=== PATIENT | male | born 1975 | race Caucasian/White ===

== ENCOUNTER 2022-01-20 12:02 | Emergency (ER) | payer MEDICAID, SELFPAY ==
--- NOTE | ~2022-01-20 | CT_ITS ---
EXAMINATION: CT ABDOMEN AND PELVIS WITH CONTRAST CLINICAL INFORMATION: Left lower quadrant pain. History of IV drug abuse COMPARISON: None TECHNIQUE: Multidetector volumetric images were obtained from the superior aspect of the liver through the pubic symphysis following administration 85 mL of Omnipaque 350 intravenous contrast. Sagittal and coronal reformatted images were obtained on the technologist's workstation. Oral contrast: No This CT examination was performed using dose optimization techniques as appropriate, variously including the following: *Automated exposure control *Adjustment of mA and/or kV according to patient size (this includes techniques or standardized protocols for targeted exams where dose is matched to indication/reason for exam; i.e. extremities or head) *Use of iterative reconstruction technique DLP: 391 mGy-cm FINDINGS: LUNG BASES: The heart is enlarged. Bibasilar atelectasis is present. Pacemaker leads are present. LIVER, GALLBLADDER, AND BILIARY TREE: The liver is enlarged measuring at least 20 cm in greatest length. I suspect that there is some hepatic steatosis as there appears to be some focal fatty sparing adjacent to the gallbladder (13:42). No focal hepatic mass is seen. The gallbladder is unremarkable with no evidence of radiopaque gallstones, gallbladder wall thickening, or obvious pericholecystic inflammatory changes. PANCREAS: Unremarkable. SPLEEN: Spleen is markedly enlarged measuring 18 cm in greatest length and there is a 9.6 x 5.6 x 8.1 cm hypoattenuating mass in the inferior spleen. Given the history of IV drug abuse, abscess is certainly a possibility. ADRENAL GLANDS: Unremarkable. KIDNEYS AND URETERS: There is a focal cortical scar present at the upper pole of the right kidney laterally with some associated calcification. A 2 mm punctate nonobstructing calculus is present in the left lower pole. No suspicious renal masses or hydroureter is present. BLADDER: Unremarkable. GASTROINTESTINAL TRACT: The small and large bowel are unremarkable aside from a few scattered colonic diverticula without diverticulitis.. The appendix is unremarkable. ABDOMINAL WALL: No significant hernia is appreciated. LYMPH NODES: No retroperitoneal lymphadenopathy. VASCULAR: Unremarkable. PELVIC VISCERA: A small to moderate amount of ascites is present. Prostate and seminal vesicles appear normal. OSSEOUS STRUCTURES: Marked disc space narrowing noted at the L4-L5 and L5-S1 disc spaces with some cortical destructive changes. Given the history of IV drug abuse, discitis would certainly be a possibility. Unfortunately, no prior studies are available for comparison. The remainder of the visualized lumbar spine is unremarkable remaining. CT/CT abdomen pelvis w IV con IMPRESSION: 1. Marked splenomegaly with a large hypoattenuating mass in the spleen. Differential diagnosis would include an abscess in an IV drug abuser. Other causes such as hemangioma or chronic hematoma along with lymphoma, leukemia, metastatic disease, lymphoma, are probably less likely in this scenario 2. Hepatomegaly with probable steatosis and a small to moderate amount of ascites. 3. Findings at L4-L5 and L5-S1 which could represent discitis in the setting of IV drug abuse. 4. Other incidental findings as described above including right upper pole renal scar and nonobstructing left renal calculus. Fleischner guidelines were followed. This critical result was discussed with Dr. Susan Kelly at 8:20 PM on the evening of the exam and it was ascertained that the content and urgency of the report was understood at the time of direct communication.
--- NOTE | ~2022-01-20 | CT_ITS ---
EXAMINATION: CT THORACIC SPINE WITH CONTRAST CT LUMBAR SPINE WITHOUT CONTRAST CLINICAL INFORMATION: Spinal pain. Intravenous drug abuse. COMPARISON: CT abdomen and pelvis 01/20/2022. TECHNIQUE: Janitor Custodian images were obtained. CT imaging of the thoracic and lumbar spine was performed after the intravenous administration of 85 mL Omnipaque 350. This CT examination was performed using dose optimization techniques as appropriate, including one or more of the following: Automated exposure control, iterative reconstruction, and adjustment of technique factors (mA and/or kVp) according to patient size (this includes techniques or standardized protocols for targeted exams where dose is matched to indication/reason for exam). Fleischner Society criteria for the followup of incidental pulmonary nodules was implemented if appropriate. DLP: 751 mGy-cm. FINDINGS: Thoracic spine: Alignment is normal. Vertebral body heights are preserved. No acute fracture. Intervertebral disc height is maintained at all levels. Canal patency is not well assessed on this examination due to inherent limitations of CT without intrathecal contrast. Grossly no evidence of canal compromise. Limited visualization of the intrathoracic anatomy reveals bibasilar subsegmental atelectasis. Lumbar spine: Alignment is normal. Vertebral heights are preserved. There is loss of intervertebral disc height with mixed lytic and sclerotic changes involving the adjoining endplates at L4-L5 and L5-S1. Subtle loss of intervertebral disc height at L3-L4. Patency is not well assessed on this examination due to inherent limitations of CT without intrathecal contrast. No substantial neuroforaminal encroachment. Limited visualization of the retroperitoneal anatomy reveals intraperitoneal fluid layering within the pelvis. Psoas and paraspinal muscle groups are symmetric. CT/CT lumbar spine w IV con IMPRESSION: There are mixed lytic and sclerotic changes involving the adjoining endplates at L4-L5 and L5-S1 that may represent a manifestation of discitis osteomyelitis. Mild disc degeneration at L3-L4. Canal patency is not well assessed on this examination due to inherent limitations of CT without intrathecal contrast. Grossly no evidence of canal compromise. Limited visualization of the retroperitoneal anatomy reveals intraperitoneal fluid layering within the pelvis.
--- NOTE | ~2022-01-20 | CT_ITS ---
EXAMINATION: CT THORACIC SPINE WITH CONTRAST CT LUMBAR SPINE WITHOUT CONTRAST CLINICAL INFORMATION: Spinal pain. Intravenous drug abuse. COMPARISON: CT abdomen and pelvis 01/20/2022. TECHNIQUE: Psychology Department Chair images were obtained. CT imaging of the thoracic and lumbar spine was performed after the intravenous administration of 85 mL Omnipaque 350. This CT examination was performed using dose optimization techniques as appropriate, including one or more of the following: Automated exposure control, iterative reconstruction, and adjustment of technique factors (mA and/or kVp) according to patient size (this includes techniques or standardized protocols for targeted exams where dose is matched to indication/reason for exam). Fleischner Society criteria for the followup of incidental pulmonary nodules was implemented if appropriate. DLP: 751 mGy-cm. FINDINGS: Thoracic spine: Alignment is normal. Vertebral body heights are preserved. No acute fracture. Intervertebral disc height is maintained at all levels. Canal patency is not well assessed on this examination due to inherent limitations of CT without intrathecal contrast. Grossly no evidence of canal compromise. Limited visualization of the intrathoracic anatomy reveals bibasilar subsegmental atelectasis. Lumbar spine: Alignment is normal. Vertebral heights are preserved. There is loss of intervertebral disc height with mixed lytic and sclerotic changes involving the adjoining endplates at L4-L5 and L5-S1. Subtle loss of intervertebral disc height at L3-L4. Patency is not well assessed on this examination due to inherent limitations of CT without intrathecal contrast. No substantial neuroforaminal encroachment. Limited visualization of the retroperitoneal anatomy reveals intraperitoneal fluid layering within the pelvis. Psoas and paraspinal muscle groups are symmetric. CT/CT thoracic spine w IV con IMPRESSION: There are mixed lytic and sclerotic changes involving the adjoining endplates at L4-L5 and L5-S1 that may represent a manifestation of discitis osteomyelitis. Mild disc degeneration at L3-L4. Canal patency is not well assessed on this examination due to inherent limitations of CT without intrathecal contrast. Grossly no evidence of canal compromise. Limited visualization of the retroperitoneal anatomy reveals intraperitoneal fluid layering within the pelvis.
[2022-01-20 12:19] VITALS: BP 100/64; PULSE 74; RESP 18; TEMP 36.6; O2SAT 96; BMI 17.6
--- NOTE | 2022-01-20 12:19 | ED.ABDPAIN ---
HPI - Abdominal Pain General Chief Complaint: Abdominal Pain <Oli Haile MD - Last Filed: 01/20/22 12:22> Stated Complaint: chest and abd pain <Oli Haile MD - Last Filed: 01/20/22 12:22> Time Seen by Provider: 01/20/22 17:04 <Oli Haile MD - Last Filed: 01/20/22 12:22> Related Data Allergies/Adverse Reactions: Allergies Allergy/AdvReac Type Severity Reaction Status Date / Time clindamycin Allergy Hives Verified 01/20/22 12:21 <Oli Haile MD - Last Filed: 01/20/22 12:22> [facility] Social History Social History: Social History Smoked in Last 30 Days: Yes Use of substances other than those prescribed or required for medical reasons: Yes Advance Directives: No Advance Directives Information Provided: No <Oli Haile MD - Last Filed: 01/20/22 12:22> Physical Exam ED Vital Signs: Vital Signs - 24 hr 01/20/22 12:19 01/20/22 17:20 01/20/22 21:35 Temperature 97.8 F 98.1 F Pulse Rate 74 75 77 Respiratory Rate 18 18 Blood Pressure 100/64 105/62 118/73 Pulse Oximetry 96 99 100 Oxygen Delivery Method Room Air Room Air Room Air 01/20/22 22:25 01/20/22 23:51 01/21/22 01:46 Temperature 99.1 F 99.8 F 99.8 F Pulse Rate 85 89 85 Respiratory Rate 18 15 18 Blood Pressure 127/81 118/68 99/53 L Pulse Oximetry 97 95 93 Oxygen Delivery Method Room Air Room Air Room Air 01/21/22 03:42 Temperature 99.5 F Pulse Rate 75 Respiratory Rate 15 Blood Pressure 102/58 L Pulse Oximetry 99 Oxygen Delivery Method Room Air BMI result Body Mass Index 17.6 <Oli Haile MD - Last Filed: 01/20/22 12:22> Vital Signs - 24 hr 01/20/22 12:19 01/20/22 17:20 01/20/22 21:35 Temperature 97.8 F 98.1 F Pulse Rate 74 75 77 Respiratory Rate 18 18 Blood Pressure 100/64 105/62 118/73 Pulse Oximetry 96 99 100 Oxygen Delivery Method Room Air Room Air Room Air 01/20/22 22:25 01/20/22 23:51 01/21/22 01:46 Temperature 99.1 F 99.8 F 99.8 F Pulse Rate 85 89 85 Respiratory Rate 18 15 18 Blood Pressure 127/81 118/68 99/53 L Pulse Oximetry 97 95 93 Oxygen Delivery Method Room Air Room Air Room Air 01/21/22 03:42 Temperature 99.5 F Pulse Rate 75 Respiratory Rate 15 Blood Pressure 102/58 L Pulse Oximetry 99 Oxygen Delivery Method Room Air BMI result Body Mass Index 17.6 <Jimmy Saavedra MD - Last Filed: 01/21/22 05:27> Course Reevaluation(s) Reevaluation #1: left lower abdominal pain with palpitations. Abdominal pain started first followed by palpitations. 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 No active shooting. PE, thin cachectic male RRR, 3/6 SHAUN tender abdomen <Oli Haile MD - Last Filed: 01/20/22 12:22> Time: 05:26 <Jimmy Saavedra MD - Last Filed: 01/21/22 05:27> Reevaluation #2: Lab called blood culture 04/17 showing Gram-positive cocci in chain final report pending <Jimmy Saavedra MD - Last Filed: 01/21/22 05:27> Medications Administered Discontinued Medications Generic Name Dose Route Start Last Admin Trade Name Parminder PRN Reason Stop Dose Admin Hydromorphone HCl 0.5 mg 01/20/22 20:25 01/20/22 21:05 Hydromorphone Hcl 0.5 Mg/0.5 Ml Syringe IVPUSH 01/20/22 20:26 0.5 mg ONCE ONE Administration Protocol Hydromorphone HCl 0.5 mg 01/20/22 23:59 01/21/22 00:11 Hydromorphone Hcl 0.5 Mg/0.5 Ml Syringe IVPUSH 01/21/22 00:00 0.5 mg ONCE ONE Administration Protocol Sodium Chloride 1,000 mls @ 999 mls/hr 01/20/22 17:15 01/20/22 21:06 Ns IV 01/20/22 18:15 Infused .Q1H1M JOSSELINE Infusion Ceftriaxone Sodium 2 gm/ 50 mls @ 100 mls/hr 01/20/22 17:27 01/20/22 21:07 Sodium Chloride IV 01/20/22 17:56 Infused ONCE ONE Infusion Vancomycin HCl 1,000 mg/ 270 mls @ 270 mls/hr 01/20/22 23:11 01/21/22 01:14 Sodium Chloride IV 01/21/22 00:10 Infused ONCE ONE Infusion Iohexol 100 ml 01/20/22 18:24 01/20/22 18:24 Iohexol 350 Mg/Ml 100 Ml Infus..Btl IV 01/20/22 18:25 85 ml ONCE ONE Administration <Oli Haile MD - Last Filed: 01/20/22 12:22> Medications Administered Discontinued Medications Generic Name Dose Route Start Last Admin Trade Name Freq PRN Reason Stop Dose Admin Hydromorphone HCl 0.5 mg 01/20/22 20:25 01/20/22 21:05 Hydromorphone Hcl 0.5 Mg/0.5 Ml Syringe IVPUSH 01/20/22 20:26 0.5 mg ONCE ONE Administration Protocol Hydromorphone HCl 0.5 mg 01/20/22 23:59 01/21/22 00:11 Hydromorphone Hcl 0.5 Mg/0.5 Ml Syringe IVPUSH 01/21/22 00:00 0.5 mg ONCE ONE Administration Protocol Sodium Chloride 1,000 mls @ 999 mls/hr 01/20/22 17:15 01/20/22 21:06 Ns IV 01/20/22 18:15 Infused .Q1H1M JOSSELINE Infusion Ceftriaxone Sodium 2 gm/ 50 mls @ 100 mls/hr 01/20/22 17:27 01/20/22 21:07 Sodium Chloride IV 01/20/22 17:56 Infused ONCE ONE Infusion Vancomycin HCl 1,000 mg/ 270 mls @ 270 mls/hr 01/20/22 23:11 01/21/22 01:14 Sodium Chloride IV 01/21/22 00:10 Infused ONCE ONE Infusion Iohexol 100 ml 01/20/22 18:24 01/20/22 18:24 Iohexol 350 Mg/Ml 100 Ml Infus..Btl IV 01/20/22 18:25 85 ml ONCE ONE Administration <Jimmy Saavedra MD - Last Filed: 01/21/22 05:27> MDM - Abdominal Pain Lab Data Result diagrams: : 01/20/22 12:38 01/20/22 12:38 <Oli Haile MD - Last Filed: 01/20/22 12:22> Labs: Lab Results 01/20/22 01/20/22 01/20/22 Range/Units 12:38 12:38 17:28 WBC 16.1 H (4.8-10.8) X10*3/uL RBC 3.42 L (4.60-5.80) X10*6/uL Hgb 9.0 L (14.0-18.0) g/dl Hct 28.3 L (42.0-52.0) % MCV 82.7 (80.0-98.0) fL MCH 26.3 L (27.0-33.0) pg MCHC 31.8 (31.0-36.0) g/dl RDW 16.0 (11.0-16.0) % Plt Count 150 L (160-400) X10*3/uL MPV 12.2 (9.4-12.4) fL Immature Gran % (Auto) 1.9 H (0.0-0.4) % Neut % (Auto) 87.6 H (45-73) % Lymph % (Auto) 7.2 L (20-40) % [place] % (Auto) 3.0 (2-11) % Eos % (Auto) 0.1 (0-4) % Baso % (Auto) 0.2 (0-2) % Lymph # (Auto) 1.2 (1.2-4.9) X10*3/uL [place] # (Auto) 0.5 (0.1-1.2) X10*3/uL Eos # (Auto) 0.0 (0.0-0.4) X10*3/uL Baso # (Auto) 0.0 (0.0-0.2) X10*3/uL Abs Immat Gran (auto) 0.31 H (0.00-0.03) X10*3/uL Absolute Neuts (auto) 14.1 H (2.0-8.3) x10*3/uL Absolute Nucleated RBC 0.020 H (0.0-0.012) X10*3/uL Nucleated RBC % (auto) 0.1 (0.0-0.2) /100WBC Sodium 135 (135-145) mmol/L Potassium 3.9 (3.3-5.1) mmol/L Chloride 101 (96-108) mmol/L Carbon Dioxide 24 (22-29) mmol/L Anion Gap 14 (12-20) BUN 19 H (9-16) mg/dL Creatinine 0.91 (0.5-1.4) mg/dL Estim Creat Clear Calc 85.4 Estimated GFR > 60 Random Glucose 105 (60-115) mg/dL Lactic Acid 1.1 (0.5-2.0) mmol/L Calcium 7.7 L (8.4-10.2) mg/dL Total Bilirubin 1.1 H (0.0-1.0) mg/dL AST 63 H (5-37) U/L ALT 37 (0-40) U/L Alkaline Phosphatase 141 H (39-117) U/L Total Protein 6.0 L (6.5-8.0) g/dL Albumin 2.6 L (3.5-5.0) g/dL Lipase 28 (8-78) U/L Ethyl Alcohol < 10 mg/dL Influenza Type A (PCR) (Negative) Influenza Type B (PCR) (Negative) RSV RNA Qual (PCR) (Negative) SARS-CoV-2 RNA (RT-PCR) (Negative) 01/20/22 Range/Units 17:38 WBC (4.8-10.8) X10*3/uL RBC (4.60-5.80) X10*6/uL Hgb (14.0-18.0) g/dl Hct (42.0-52.0) % MCV (80.0-98.0) fL MCH (27.0-33.0) pg MCHC (31.0-36.0) g/dl RDW (11.0-16.0) % Plt Count (160-400) X10*3/uL MPV (9.4-12.4) fL Immature Gran % (Auto) (0.0-0.4) % Neut % (Auto) (45-73) % Lymph % (Auto) (20-40) % [place] % (Auto) (2-11) % Eos % (Auto) (0-4) % Baso % (Auto) (0-2) % Lymph # (Auto) (1.2-4.9) X10*3/uL [place] # (Auto) (0.1-1.2) X10*3/uL Eos # (Auto) (0.0-0.4) X10*3/uL Baso # (Auto) (0.0-0.2) X10*3/uL Abs Immat Gran (auto) (0.00-0.03) X10*3/uL Absolute Neuts (auto) (2.0-8.3) x10*3/uL Absolute Nucleated RBC (0.0-0.012) X10*3/uL Nucleated RBC % (auto) (0.0-0.2) /100WBC Sodium (135-145) mmol/L Potassium (3.3-5.1) mmol/L Chloride (96-108) mmol/L Carbon Dioxide (22-29) mmol/L Anion Gap (12-20) BUN (9-16) mg/dL Creatinine (0.5-1.4) mg/dL Estim Creat Clear Calc Estimated GFR Random Glucose (60-115) mg/dL Lactic Acid (0.5-2.0) mmol/L Calcium (8.4-10.2) mg/dL Total Bilirubin (0.0-1.0) mg/dL AST (5-37) U/L ALT (0-40) U/L Alkaline Phosphatase (39-117) U/L Total Protein (6.5-8.0) g/dL Albumin (3.5-5.0) g/dL Lipase (8-78) U/L Ethyl Alcohol mg/dL Influenza Type A (PCR) NEGATIVE (Negative) Influenza Type B (PCR) NEGATIVE (Negative) RSV RNA Qual (PCR) NEGATIVE (Negative) SARS-CoV-2 RNA (RT-PCR) NEGATIVE (Negative) <Oli Haile MD - Last Filed: 01/20/22 12:22> Lab Results 01/20/22 01/20/22 01/20/22 Range/Units 12:38 12:38 17:28 WBC 16.1 H (4.8-10.8) X10*3/uL RBC 3.42 L (4.60-5.80) X10*6/uL Hgb 9.0 L (14.0-18.0) g/dl Hct 28.3 L (42.0-52.0) % MCV 82.7 (80.0-98.0) fL MCH 26.3 L (27.0-33.0) pg MCHC 31.8 (31.0-36.0) g/dl RDW 16.0 (11.0-16.0) % Plt Count 150 L (160-400) X10*3/uL MPV 12.2 (9.4-12.4) fL Immature Gran % (Auto) 1.9 H (0.0-0.4) % Neut % (Auto) 87.6 H (45-73) % Lymph % (Auto) 7.2 L (20-40) % [place] % (Auto) 3.0 (2-11) % Eos % (Auto) 0.1 (0-4) % Baso % (Auto) 0.2 (0-2) % Lymph # (Auto) 1.2 (1.2-4.9) X10*3/uL [place] # (Auto) 0.5 (0.1-1.2) X10*3/uL Eos # (Auto) 0.0 (0.0-0.4) X10*3/uL Baso # (Auto) 0.0 (0.0-0.2) X10*3/uL Abs Immat Gran (auto) 0.31 H (0.00-0.03) X10*3/uL Absolute Neuts (auto) 14.1 H (2.0-8.3) x10*3/uL Absolute Nucleated RBC 0.020 H (0.0-0.012) X10*3/uL Nucleated RBC % (auto) 0.1 (0.0-0.2) /100WBC Sodium 135 (135-145) mmol/L Potassium 3.9 (3.3-5.1) mmol/L Chloride 101 (96-108) mmol/L Carbon Dioxide 24 (22-29) mmol/L Anion Gap 14 (12-20) BUN 19 H (9-16) mg/dL Creatinine 0.91 (0.5-1.4) mg/dL Estim Creat Clear Calc 85.4 Estimated GFR > 60 Random Glucose 105 (60-115) mg/dL Lactic Acid 1.1 (0.5-2.0) mmol/L Calcium 7.7 L (8.4-10.2) mg/dL Total Bilirubin 1.1 H (0.0-1.0) mg/dL AST 63 H (5-37) U/L ALT 37 (0-40) U/L Alkaline Phosphatase 141 H (39-117) U/L Total Protein 6.0 L (6.5-8.0) g/dL Albumin 2.6 L (3.5-5.0) g/dL Lipase 28 (8-78) U/L Ethyl Alcohol < 10 mg/dL Influenza Type A (PCR) (Negative) Influenza Type B (PCR) (Negative) RSV RNA Qual (PCR) (Negative) SARS-CoV-2 RNA (RT-PCR) (Negative) 01/20/22 Range/Units 17:38 WBC (4.8-10.8) X10*3/uL RBC (4.60-5.80) X10*6/uL Hgb (14.0-18.0) g/dl Hct (42.0-52.0) % MCV (80.0-98.0) fL MCH (27.0-33.0) pg MCHC (31.0-36.0) g/dl RDW (11.0-16.0) % Plt Count (160-400) X10*3/uL MPV (9.4-12.4) fL Immature Gran % (Auto) (0.0-0.4) % Neut % (Auto) (45-73) % Lymph % (Auto) (20-40) % [place] % (Auto) (2-11) % Eos % (Auto) (0-4) % Baso % (Auto) (0-2) % Lymph # (Auto) (1.2-4.9) X10*3/uL [place] # (Auto) (0.1-1.2) X10*3/uL Eos # (Auto) (0.0-0.4) X10*3/uL Baso # (Auto) (0.0-0.2) X10*3/uL Abs Immat Gran (auto) (0.00-0.03) X10*3/uL Absolute Neuts (auto) (2.0-8.3) x10*3/uL Absolute Nucleated RBC (0.0-0.012) X10*3/uL Nucleated RBC % (auto) (0.0-0.2) /100WBC Sodium (135-145) mmol/L Potassium (3.3-5.1) mmol/L Chloride (96-108) mmol/L Carbon Dioxide (22-29) mmol/L Anion Gap (12-20) BUN (9-16) mg/dL Creatinine (0.5-1.4) mg/dL Estim Creat Clear Calc Estimated GFR Random Glucose (60-115) mg/dL Lactic Acid (0.5-2.0) mmol/L Calcium (8.4-10.2) mg/dL Total Bilirubin (0.0-1.0) mg/dL AST (5-37) U/L ALT (0-40) U/L Alkaline Phosphatase (39-117) U/L Total Protein (6.5-8.0) g/dL Albumin (3.5-5.0) g/dL Lipase (8-78) U/L Ethyl Alcohol mg/dL Influenza Type A (PCR) NEGATIVE (Negative) Influenza Type B (PCR) NEGATIVE (Negative) RSV RNA Qual (PCR) NEGATIVE (Negative) SARS-CoV-2 RNA (RT-PCR) NEGATIVE (Negative) <Jimmy Saavedra MD - Last Filed: 01/21/22 05:27> Discharge Plan Discharge Clinical Impression: Abscess, spleen, Active intravenous drug use, Discitis of lumbar region <Oli Haile MD - Last Filed: 01/20/22 12:22> Patient Disposition: [facility] <Oli Haile MD - Last Filed: 01/20/22 12:22> Transfer Details: Increased level of care, Neurosurgery needed <Oli Haile MD - Last Filed: 01/20/22 12:22> Increased level of care, Neurosurgery needed <Jimmy Saavedra MD - Last Filed: 01/21/22 05:27>
--- NOTE | 2022-01-20 12:22 | ECG_ITS ---
Test Reason : abd pain Blood Pressure : / mmHG Vent. Rate : 075 BPM Atrial Rate : 075 BPM P-R Int : 198 ms QRS Dur : 124 ms QT Int : 454 ms P-R-T Axes : -10 -43 -31 degrees QTc Int : 506 ms AV dual-paced rhythm Abnormal ECG No previous ECGs available Referred By: Oli Haile Electronically Signed By:SHAHNAZ HUDSON MD
[2022-01-20 12:44] LABS: MANUAL DIFF FLAG NO
[2022-01-20 12:45] LABS: Basophils Percent Auto 0.2 % (0-2); Eosinophils Percent Auto 0.1 % (0-4); Hematocrit 28.3 % (42.0-52.0); Imm Gran Abs Auto 0.31 X10*3/uL (0.00-0.03); Imm Gran Pct Auto 1.9 % (0.0-0.4); Lymphocytes Absolute Auto 1.2 X10*3/uL (1.2-4.9); Lymphocytes Percent Auto 7.2 % (20-40); Mean Corpuscular HGB Conc 31.8 g/dl (31.0-36.0); Mean Corpuscular Hemoglobin 26.3 pg (27.0-33.0); Mean Corpuscular Volume 82.7 fL (80.0-98.0); Mean Platelet Volume 12.2 fL (9.4-12.4); Monocytes Absolute Auto 0.5 X10*3/uL (0.1-1.2); NRBC Pct Auto 0.1 /100WBC (0.0-0.2); Neutrophils Absolute Auto 14.1 x10*3/uL (2.0-8.3); Neutrophils Percent Auto 87.6 % (45-73); Platelet Count 150 X10*3/uL (160-400); Red Blood Count 3.42 X10*6/uL (4.60-5.80); White Blood Count 16.1 X10*3/uL (4.8-10.8)
[2022-01-20 13:04] LABS: Alanine Aminotransferase 37 U/L (0-40); Albumin Level 2.6 g/dL (3.5-5.0); Alkaline Phosphatase 141 U/L (39-117); Anion Gap 14 (12-20); Aspartate Amino Transferase 63 U/L (5-37); Bilirubin Total 1.1 mg/dL (0.0-1.0); Blood Urea Nitrogen 19 mg/dL (9-16); Calcium 7.7 mg/dL (8.4-10.2); Carbon Dioxide 24 mmol/L (22-29); Chloride 101 mmol/L (96-108); Creatinine Clr Calc Pharmacy 85.4; Estimated Glomerular Filt Rate > 60; Glucose Random 105 mg/dL (60-115); Lipase 28 U/L (8-78); Potassium 3.9 mmol/L (3.3-5.1); Sodium 135 mmol/L (135-145)
--- NOTE | 2022-01-20 17:16 | ED.ABDPAIN ---
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 Patient states that 2 days ago he woke up with severe back pain that wrapped around to the left lower quadrant and reports palpitations. He states that he can barely walk because of the pain, has been having some nausea as well as chills and describes the pain as sharp in nature. Related Data Allergies Allergy/AdvReac Type Severity Reaction Status Date / Time clindamycin Allergy Hives Verified 01/20/22 12:21 Review of Systems Review of Systems Pertinent positives and negatives as stated in HPI 10 point review of systems is otherwise negative. PMFSH Past Medical History Source: nursing notes reviewed Social History Social History Advance Directives: No Advance Directives Information Provided: No Physical Exam ED Vital Signs: Vital Signs - 24 hr 01/20/22 12:19 01/20/22 17:20 01/20/22 21:35 Temperature 97.8 F 98.1 F Pulse Rate 74 75 77 Respiratory Rate 18 18 Blood Pressure 100/64 105/62 118/73 Pulse Oximetry 96 99 100 Oxygen Delivery Method Room Air Room Air Room Air 01/20/22 22:25 Temperature 99.1 F Pulse Rate 85 Respiratory Rate 18 Blood Pressure 127/81 Pulse Oximetry 97 Oxygen Delivery Method Room Air BMI result Body Mass Index 17.6 VITAL SIGNS: Reviewed. GENERAL: Chronically ill, cachectic, in no acute distress. HEAD: Normocephalic/atraumatic EYES: PERRLA, EOMI EARS: Ext canals without abnormality OROPHARYNX: no oral lesions noted, posterior pharynx clear, dry mucosa NECK: Supple, no adenopathy, no midline cervical spine tenderness LUNGS: Normal breath sounds. No adventitious sounds or accessory muscle use. SpO2<96> CARDIOVASCULAR: Paced rate and rhythm, + murmurs, no JVD or lower extremity edema. ABDOMEN: Soft, diffusely tender abdomen that is maximal in left lower quadrant without inguinal pain, non-distended with bowel sounds. BACK: No midline cervical spine tenderness from approximate T10 extending caudally into L4-L5 MUSCULOSKELETAL: No tenderness, deformities, or effusions noted on gross inspection, multiple injection sites along bilateral ankles. EXTREMITIES: No cyanosis, clubbing or edema. SKIN: Inspection of the skin reveals no rashes NEUROLOGIC: Alert and oriented x 4. Strength and sensation to light touch were grossly intact x 4. Course Course Course Narrative: 1725: I suspect an infection. High clinical suspicion for possible spinal abscess, lactic acid/blood cultures ordered, antibiotics will be ordered, IV fluids and attempting arrangements for MRI of the spine. Patient does not have his pacemaker information so will proceed with evaluation with CT scan and IV contrast. 07/2021 Note: I obtained records from [facility] from 08/01/2021 and patient is reported as having a longstanding, recurrent history with multiple surgeries and infections involving his heart. Bioprosthetic AVR in 2016 and redo aortic valve with root repair/mitral valve repair/tricuspid annuloplasty in 2020. During the last cardiac surgery patient went into cardiogenic shock requiring ECMO an by ventricular epicardial pacemaker placement. 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 Review of all investigations consistent with splenic abscess, hepatomegaly, diskitis with limited evaluation for possible osteomyelitis or evaluation of the spinal canal. Patient has been made NPO and given pain medication and will speak with [facility] for transfer as we do not have neurosurgical services and patient will likely need evaluation by Surgical Services. Reevaluation(s) Reevaluation #1: [facility] called to report splenic abscess, and states that neuro radiologist will be reading the spine portion of the study. Time: 20:17 Reevaluation #2: I discussed the case with Dr. Simental through [facility] and [place] who accepts the patient. Time: 23:13 Medications Administered Discontinued Medications Generic Name Dose Route Start Last Admin Trade Name Freq PRN Reason Stop Dose Admin Hydromorphone HCl 0.5 mg 01/20/22 20:25 01/20/22 21:05 Hydromorphone Hcl 0.5 Mg/0.5 Ml Syringe IVPUSH 01/20/22 20:26 0.5 mg ONCE ONE Administration Protocol Sodium Chloride 1,000 mls @ 999 mls/hr 01/20/22 17:15 01/20/22 21:06 Ns IV 01/20/22 18:15 Infused .Q1H1M JOSSELINE Infusion Ceftriaxone Sodium 2 gm/ 50 mls @ 100 mls/hr 01/20/22 17:27 01/20/22 21:07 Sodium Chloride IV 01/20/22 17:56 Infused ONCE ONE Infusion Iohexol 100 ml 01/20/22 18:24 01/20/22 18:24 Iohexol 350 Mg/Ml 100 Ml Infus..Btl IV 01/20/22 18:25 85 ml ONCE ONE Administration MDM - Abdominal Pain Lab Data Result diagrams: 01/20/22 12:38 01/20/22 12:38 Labs: Lab Results 01/20/22 01/20/22 01/20/22 Range/Units 12:38 12:38 17:28 WBC 16.1 H (4.8-10.8) X10*3/uL RBC 3.42 L (4.60-5.80) X10*6/uL Hgb 9.0 L (14.0-18.0) g/dl Hct 28.3 L (42.0-52.0) % MCV 82.7 (80.0-98.0) fL MCH 26.3 L (27.0-33.0) pg MCHC 31.8 (31.0-36.0) g/dl RDW 16.0 (11.0-16.0) % Plt Count 150 L (160-400) X10*3/uL MPV 12.2 (9.4-12.4) fL Immature Gran % (Auto) 1.9 H (0.0-0.4) % Neut % (Auto) 87.6 H (45-73) % Lymph % (Auto) 7.2 L (20-40) % Cooper % (Auto) 3.0 (2-11) % Eos % (Auto) 0.1 (0-4) % Baso % (Auto) 0.2 (0-2) % Lymph # (Auto) 1.2 (1.2-4.9) X10*3/uL Cooper # (Auto) 0.5 (0.1-1.2) X10*3/uL Eos # (Auto) 0.0 (0.0-0.4) X10*3/uL Baso # (Auto) 0.0 (0.0-0.2) X10*3/uL Abs Immat Gran (auto) 0.31 H (0.00-0.03) X10*3/uL Absolute Neuts (auto) 14.1 H (2.0-8.3) x10*3/uL Absolute Nucleated RBC 0.020 H (0.0-0.012) X10*3/uL Nucleated RBC % (auto) 0.1 (0.0-0.2) /100WBC Sodium 135 (135-145) mmol/L Potassium 3.9 (3.3-5.1) mmol/L Chloride 101 (96-108) mmol/L Carbon Dioxide 24 (22-29) mmol/L Anion Gap 14 (12-20) BUN 19 H (9-16) mg/dL Creatinine 0.91 (0.5-1.4) mg/dL Estim Creat Clear Calc 85.4 Estimated GFR > 60 Random Glucose 105 (60-115) mg/dL Lactic Acid 1.1 (0.5-2.0) mmol/L Calcium 7.7 L (8.4-10.2) mg/dL Total Bilirubin 1.1 H (0.0-1.0) mg/dL AST 63 H (5-37) U/L ALT 37 (0-40) U/L Alkaline Phosphatase 141 H (39-117) U/L Total Protein 6.0 L (6.5-8.0) g/dL Albumin 2.6 L (3.5-5.0) g/dL Lipase 28 (8-78) U/L Ethyl Alcohol < 10 mg/dL Influenza Type A (PCR) (Negative) Influenza Type B (PCR) (Negative) RSV RNA Qual (PCR) (Negative) SARS-CoV-2 RNA (RT-PCR) (Negative) 01/20/22 Range/Units 17:38 WBC (4.8-10.8) X10*3/uL RBC (4.60-5.80) X10*6/uL Hgb (14.0-18.0) g/dl Hct (42.0-52.0) % MCV (80.0-98.0) fL MCH (27.0-33.0) pg MCHC (31.0-36.0) g/dl RDW (11.0-16.0) % Plt Count (160-400) X10*3/uL MPV (9.4-12.4) fL Immature Gran % (Auto) (0.0-0.4) % Neut % (Auto) (45-73) % Lymph % (Auto) (20-40) % Cooper % (Auto) (2-11) % Eos % (Auto) (0-4) % Baso % (Auto) (0-2) % Lymph # (Auto) (1.2-4.9) X10*3/uL [place] # (Auto) (0.1-1.2) X10*3/uL Eos # (Auto) (0.0-0.4) X10*3/uL Baso # (Auto) (0.0-0.2) X10*3/uL Abs Immat Gran (auto) (0.00-0.03) X10*3/uL Absolute Neuts (auto) (2.0-8.3) x10*3/uL Absolute Nucleated RBC (0.0-0.012) X10*3/uL Nucleated RBC % (auto) (0.0-0.2) /100WBC Sodium (135-145) mmol/L Potassium (3.3-5.1) mmol/L Chloride (96-108) mmol/L Carbon Dioxide (22-29) mmol/L Anion Gap (12-20) BUN (9-16) mg/dL Creatinine (0.5-1.4) mg/dL Estim Creat Clear Calc Estimated GFR Random Glucose (60-115) mg/dL Lactic Acid (0.5-2.0) mmol/L Calcium (8.4-10.2) mg/dL Total Bilirubin (0.0-1.0) mg/dL AST (5-37) U/L ALT (0-40) U/L Alkaline Phosphatase (39-117) U/L Total Protein (6.5-8.0) g/dL Albumin (3.5-5.0) g/dL Lipase (8-78) U/L Ethyl Alcohol mg/dL Influenza Type A (PCR) NEGATIVE (Negative) Influenza Type B (PCR) NEGATIVE (Negative) RSV RNA Qual (PCR) NEGATIVE (Negative) SARS-CoV-2 RNA (RT-PCR) NEGATIVE (Negative) ECG Data Attestation: I personally reviewed and interpreted this ECG as follows: Prior ECG tracings: not available for review Interpretation: AV dual paced rhythm, HR-75, paced Critical Care Time Critical Care Time Critical Care Time: Yes Total Critical Care Time: 30 Attestation: I personally attest to this time spent taking care of the patient. Discharge Plan Discharge Clinical Impression: Abscess, spleen, Active intravenous drug use, Discitis of lumbar region Patient Disposition: [facility] Transfer Details: Increased level of care, Neurosurgery needed
[2022-01-20 17:20] VITALS: BP 105/62; PULSE 75; O2SAT 99
--- NOTE | 2022-01-20 17:35 | PC.NURSE ---
[facility] called for medical records at 1735 per .
[2022-01-20 17:40] LABS: Ethanol < 10 mg/dL
[2022-01-20] MEDS: 0.9 % Sodium Chloride 1,000 ML 999 ML IV (17:44)
[2022-01-20] MEDS: cefTRIAXone sodium 2 GM in 0.9 % Sodium Chloride 50 ML IV (17:44)
[2022-01-20 17:46] LABS: Lactic Acid 1.1 mmol/L (0.5-2.0)
[2022-01-20 18:20] LABS: Influenza A PCR NEGATIVE (Negative); Influenza B PCR NEGATIVE (Negative); Resp Syncy Virus RNA Qual PCR NEGATIVE (Negative); SARS COV2 PCR INHOUSE NEGATIVE (Negative)
[2022-01-20] MEDS: iohexoL 350 MG/ML 100 ML INFUS..BTL IV (18:24)
[2022-01-20] MEDS: HYDROmorphone HCl 0.5 MG/0.5 ML SYRINGE IVPUSH (21:05)
[2022-01-20 21:35] VITALS: BP 118/73; PULSE 77; RESP 18; TEMP 36.7; O2SAT 100
--- NOTE | 2022-01-20 22:15 | PC.NURSE ---
[facility]'s Transfer Line called at [phone] spoke with Lillian she stated they are closed transfers made aware. [facility] called at [phone] spoke with Haley she stated they are closed to transfers made aware. Lori called at [phone] spoke with Janey she stated they do not have Neuro Surgery made aware. Priyanka called at [phone] spoke with Kathleen osorio demographics awaiting a call back made aware.
[2022-01-20 22:25] VITALS: BP 127/81; PULSE 85; RESP 18; TEMP 37.3; O2SAT 97
--- NOTE | 2022-01-20 23:08 | PC.NURSE ---
Priyanka called at 2307 speaking with at this time.
--- NOTE | 2022-01-20 23:19 | PC.NURSE ---
At 23[address] Dr[facility] [id number]. 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 Md cook
--- NOTE | 2022-01-20 23:21 | PC.NURSE ---
Nurse to Nurse report RN aware
[2022-01-20] MEDS: vancomycin HCL 1,000 MG in 0.9 % Sodium Chloride 250 ML 270 MG IV (23:29)
--- NOTE | 2022-01-20 23:29 | PC.NURSE ---
Mary called at 2328 spoke with nya she stated they cant take this patient due to no available trucks, Nya stated she will try to pass if unable they will be here in the Am. is made aware
[2022-01-20 23:51] VITALS: BP 118/68; PULSE 89; RESP 15; TEMP 37.7; O2SAT 95
--- NOTE | 2022-01-21 00:03 | PC.NURSE ---
Mary called at 0000 spoke with Nya she stated they were unable to pass,Ems booked for 7am. made aware
[2022-01-21] MEDS: HYDROmorphone HCl 0.5 MG/0.5 ML SYRINGE IVPUSH ×2 (00:11→09:28)
[2022-01-21 01:46] VITALS: BP 99/53; PULSE 85; RESP 18; TEMP 37.7; O2SAT 93
--- NOTE | 2022-01-21 01:48 | PC.NURSE ---
Pt reminded that we need a urine sample. Pt states he cant go because he cant have fluids CHADWICK Ambriz made aware. Urinal and call lakhani placed within reach for Pt.
--- NOTE | 2022-01-21 03:13 | PC.NURSE ---
pt resting quietly on R side. abusable to stimulus
[2022-01-21 03:42] VITALS: BP 102/58; PULSE 75; RESP 15; TEMP 37.5; O2SAT 99
--- NOTE | 2022-01-21 03:45 | PC.NURSE ---
PT reminded that we still need a a urine sample. Pt states he cant go at the moment. Urinal and call lakhani placed in PT reach . CHADWICK Ambriz made aware
[2022-01-21 05:30] VITALS: BP 106/66; PULSE 76; RESP 14; TEMP 36.8; O2SAT 96
--- NOTE | 2022-01-21 05:31 | PC.NURSE ---
this RN went into pt room to obtain updated set of VS.Discussed current plan for transfer. Pt assisted to L side. Pt assisted in using urinal at bedside.
--- NOTE | 2022-01-21 07:02 | PC.NURSE ---
this RN gave report to Jasen GENAO from [place] [id number]. Transportation expected to arrive for pt transfer between 7 and 8 am.
[2022-01-21 07:30] VITALS: BP 98/56; PULSE 77; RESP 16; TEMP 37; O2SAT 97
== END 2022-01-21 09:53 | disposition short-term general hospital (02) ==
PROVIDERS: Emergency Medicine; Emergency Provider Student in an Organized Health Care Education/Training Program
DX: D73.3 Abscess of spleen (principal); M46.46 Discitis, unspecified, lumbar region; F11.20 Opioid dependence, uncomplicated; Z20.822 Contact with and (suspected) exposure to COVID-19
CPT/HCPCS: 0241U; 36415; 72129; 72132; 74177; 80053; 82077; 83605; 83690; 85025; 87040; 87077; 87186; 87205; 93005; 96361; 96365; 96375; 96376; 99285; J0696; J1170; J3370; Q9967

== ENCOUNTER 2022-04-14 14:50 | Emergency (ER) | payer MEDICAID, SELFPAY ==
--- NOTE | ~2022-04-14 | XR_ITS ---
EXAMINATION: XR CHEST CLINICAL INFORMATION: Shortness of breath. COMPARISON: None TECHNIQUE: 2 views of the chest were obtained. FINDINGS: Support devices: Left-sided pacemaker device appears in good position without abnormality. Multilevel sternotomy wires are intact. No significant abnormality is noted involving the heart, lungs, mediastinum, bony thorax or soft tissues. XR/XR chest 2V IMPRESSION: No acute cardiopulmonary process.
--- NOTE | ~2022-04-14 | CT_ITS ---
EXAMINATION: CT ANGIOGRAM OF THE CHEST WITH AND WITHOUT CONTRAST (CT PULMONARY ANGIOGRAM FOR PE) CLINICAL INFORMATION: Dyspnea. COMPARISON: CT chest from 01/24/2022. TECHNIQUE: Prior to contrast administration, noncontrast localization images were obtained. Subsequently, multidetector volumetric imaging was performed from the thoracic inlet to below the diaphragms following the administration of 80 mL Omnipaque 350 intravenous contrast. No contrast reaction reported Sagittal, coronal, and MIP oblique sagittal reformatted images were obtained on the CT workstation, uploaded to PACS, and reviewed. This CT examination was performed using dose optimization techniques as appropriate, variously including the following: *Automated exposure control *Adjustment of mA and/or kV according to patient size (this includes techniques or standardized protocols for targeted exams where dose is matched to indication/reason for exam; i.e. extremities or head) *Use of iterative reconstruction technique Total exam dose-length product 231 mGy-cm FINDINGS: QUALITY OF STUDY/CONTRAST BOLUS: Satisfactory. PULMONARY ARTERIES: No central or segmental pulmonary emboli. THORACIC AORTA: Limited evaluation of the thoracic aorta secondary to bolus timing. Within this limitation, the aorta appears of normal caliber. No demonstrated abnormalities of the noncontrast enhanced thoracic aorta to suggest intramural hematoma. LUNG: Small right greater than left pleural effusions. Moderate platelike atelectasis/scarring of the dependent lungs. Mild bronchiectasis of the right upper and lower lobe segmental bronchi. No additional focal airspace abnormalities. The airways are largely patent. No pneumothorax. MEDIASTINUM: Changes of median sternotomy. Left pectoral pacemaker with biventricular and right atrial epicardial leads. There is a single abandoned lead not connected to the generator pack. Global cardiac enlargement. No pericardial effusion. No overt hilar or mediastinal lymphadenopathy. No evidence of septal bowing. CORONARY ARTERY CALCIFICATION: Right coronary artery stent in place. No overtly demonstrated coronary artery calcification. CHEST WALL/AXILLA: No axillary or internal mammary lymphadenopathy. OSSEOUS STRUCTURES: No acute or suspicious osseous abnormality. 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 Moderate degenerative arthropathy of the shoulder joints. UPPER ABDOMEN: Moderate ascites. No demonstrated additional significant abnormalities of the visualized upper abdomen. There is retrograde opacification of the inferior vena cava and hepatic veins suggesting elevated right heart pressures/decreased cardiac function. CT/CT angio chest PE protocol IMPRESSION: 1. No evidence of pulmonary embolism. 2. Global cardiomegaly. Retrograde opacification of the IVC/hepatic veins suggesting elevated right heart pressures/decreased cardiac function. Pacemaker in place with biventricular and right atrial epicardial leads. RCA stent. 3. Small right greater than left pleural effusions. Moderate platelike atelectasis/scarring of the dependent lungs. Mild bronchiectasis of the right upper and lower lobe segmental bronchi. 4. Moderate ascites. VTE: negative
[2022-04-14 15:15] VITALS: BP 106/74; PULSE 110; RESP 20; TEMP 36.4; O2SAT 95; BMI 17.6
--- NOTE | 2022-04-14 15:16 | ED_ITS ---
HPI - Psych General Chief Complaint: Dyspnea <Miranda Elise NP - Last Filed: 04/14/22 15:24> Stated Complaint: crisis <Miranda Elise NP - Last Filed: 04/14/22 15:24> Time Seen by Provider: 04/14/22 16:52 <Miranda Elise NP - Last Filed: 04/14/22 15:24> Source: patient <Sushil Bryant MD - Last Filed: 04/14/22 18:29> Mode of arrival: ambulatory <Sushil Bryant MD - Last Filed: 04/14/22 18:29> Limitations: no limitations <Sushil Bryant MD - Last Filed: 04/14/22 18:29> History of Present Illness HPI Narrative: 46-year-old male with history of bacterial endocarditis status post pacemaker placement presents with shortness of breath and lower extremity edema starting over 2 days ago. Patient describes his symptoms as moderate to severe. Symptoms are worse with exertion, lying down, movement. Denies any chest pain or palpitations. No recent surgery or immobilization or long distance travel. He is followed by cardiology and his primary care provider as well. He is on methadone. His last use of illicit drugs was approximately 6 weeks ago. Since then he has been clean. Tomorrow he reports that he is due to meet his 3 kids whom he has not seen in a long time as well as his primary care doctor to discuss medication management. However due to his progressive and ongoing symptoms over the last 48 hours, he presents to the emergency department. He reports that he is unlikely to stay in the hospital for his symptoms. <Sushil Bryant MD - Last Filed: 04/14/22 18:29> Related Data Allergies/Adverse Reactions: Allergies Allergy/AdvReac Type Severity Reaction Status Date / Time clindamycin Allergy Hives Verified 01/20/22 12:21 <Miranda Elise NP - Last Filed: 04/14/22 15:24> Review of Systems Review of Systems: Yes all other systems are reviewed and are negative <Sushil Bryant MD - Last Filed: 04/14/22 18:29> Constitutional: Constitutional: Reports no additional constitutional complaints <Sushil Bryant MD - Last Filed: 04/14/22 18:29> Eyes: Eyes: Reports no additional eye complaints <Sushil Bryant MD - Last Filed: 04/14/22 18:29> ENT: Reports system reviewed and no additional complaints, except as documented <Sushil Bryant MD - Last Filed: 04/14/22 18:29> Cardiovascular: Cardiovascular: Denies chest pain, Denies chest pain at rest, Reports leg edema, Reports dyspnea, Reports dyspnea on exertion and Reports orthopnea <Sushil Bryant MD - Last Filed: 04/14/22 18:29> Respiratory: Respiratory: Denies cough, Denies pain on inspiration, Reports dyspnea and Reports dyspnea on exertion <Sushil Bryant MD - Last Filed: 04/14/22 18:29> Gastrointestinal: Gastrointestinal: Reports no additional gastrointestinal complaints <Sushil Bryant MD - Last Filed: 04/14/22 18:29> Genitourinary: Genitourinary: Reports no additional male genitourinary complaints <Sushil Bryant MD - Last Filed: 04/14/22 18:29> Musculoskeletal: Musculoskeletal: Reports no additional musculoskeletal c omplaints <Sushil Bryant MD - Last Filed: 04/14/22 18:29> Integumentary/Breasts: Skin/Breast: Reports system reviewed and no additional complaints, except as docu <Sushil Bryant MD - Last Filed: 04/14/22 18:29> Neurologic: Reports system reviewed and no additional complaints, except as documented <Sushil Bryant MD - Last Filed: 04/14/22 18:29> Psychiatric: Psychiatric: Reports no additional psychiatric complaints <Sushil Bryant MD - Last Filed: 04/14/22 18:29> Endocrine: Endocrine: Reports no additional endocrine complaints <Sushil Bryant MD - Last Filed: 04/14/22 18:29> Hematologic/Lymphatic: Hematologic/Lymphatic: Reports no additional hematologic/lymphatic complaints <Sushil Bryant MD - Last Filed: 04/14/22 18:29> Allergic/Immunologic: Allergic/Immunologic: Reports no additional allergic/immunologic complaints <Sushil Bryant MD - Last Filed: 04/14/22 18:29> PMFSH Past Medical History Attestation statement: The following information was validated with the patient. ( History of endocarditis, pacemaker placement, drug abuse) <Sushil Bryant MD - Last Filed: 04/14/22 18:29> Social History Social History: Social History Alcohol intake: never Smoked in Last 30 Days: Yes Use of substances other than those prescribed or required for medical reasons: No Advance Directives: No Advance Directives Information Provided: No <Miranda Elise NP - Last Filed: 04/14/22 15:24> Physical Exam Vital Signs: Vital Signs: Last Vital Signs Temp 97.8 F 04/14/22 16:38 Pulse 101 H 04/14/22 16:38 Resp 16 04/14/22 16:38 BP 101/75 04/14/22 16:38 Pulse Ox 95 04/14/22 16:38 O2 Del Method 04/14/22 16:38 BMI result Body Mass Index 17.6 <Miranda Elise NP - Last Filed: 04/14/22 15:24> Vital Signs: Last Vital Signs Temp 97.8 F 04/14/22 16:38 Pulse 101 H 04/14/22 16:38 Resp 16 04/14/22 16:38 BP 101/75 04/14/22 16:38 Pulse Ox 95 04/14/22 16:38 O2 Del Method 04/14/22 16:38 BMI result Body Mass Index 17.6 <Sushil Bryant MD - Last Filed: 04/14/22 18:29> Const: General: comfortable and no acute distress <Sushil Bryant MD - Last Filed: 04/14/22 18:29> Nutritional Appearance: cachectic <Sushil Bryant MD - Last Filed: 04/14/22 18:29> Orientation/consciousness: patient oriented x3 <Sushil Bryant MD - Last Filed: 04/14/22 18:29> Limitations: no limitations <Sushil Bryant MD - Last Filed: 04/14/22 18:29> HEENT: Head: Yes normal to inspection <Sushil Bryant MD - Last Filed: 04/14/22 18:29> Eyes: General: appearance normal, both eyes and all related structures <Caden Bryant MD - Last Filed: 04/14/22 18:29> Neck: Neck: Yes normal visual inspection <Sushil Bryant MD - Last Filed: 0 04/14/22 18:29> Resp: Effort & Inspection: normal respiratory effort and able to speak in complete sentences <Sushil Bryant MD - Last Filed: 04/14/22 18:29> Auscultation: crackles on the right at the base and breath sounds absent (left lung base) <Sushil Bryant MD - Last Filed: 04/14/22 18:29> Cardio: Rate: regular rate <Sushil Bryant MD - Last Filed: 04/14/22 18:29> Rhythm: regular rhythm <Sushil Bryant MD - Last Filed: 04/14/22 18:29> Heart sounds: Murmur heart sound present systolic <Sushil Bryant MD - Last Filed: 04/14/22 18:29> GI: Palpation (GI): nontender and no guarding <Sushil Bryant MD - Last Filed: 04/14/22 18:29> Skin: General skin exam: no rashes or lesions noted <Sushil Bryant MD - Last Filed: 04/14/22 18:29> Neuro: General: patient oriented x3 and no focal motor deficits <Sushil Bryant MD - Last Filed: 04/14/22 18:29> Extrem: General: Yes edema and Yes pedal edema (bipedal 2+) <Sushil Bryant MD - Last Filed: 04/14/22 18:29> Psych: Mental Status: mental status grossly normal <Sushil Bryant MD - Last Filed: 04/14/22 18:29> Course Course Course Narrative: This is a rapid medical exam. Defer additional HPI, ROS, PE to primary provider. 46-year-old male with extensive medical history (endocarditis, IVDA, discitis) who presents with shortness of breath with exertion for several days, also seeking methadone dosing and his last dose was 04/12 92mg. No chest pain, fevers. Patient reports he wants to be evaluated medically but if he has to be admitted he does not want to stay in the hospital tonight but would come back at a later date if it is necessary. Will obtain labs including blood cultures, lactic acid, COVID screen, EKG, CXR. VSS <Miranda Elise NP - Last Filed: 04/14/22 15:24> This is a rapid medical exam. Defer additional HPI, ROS, PE to primary provider. 46-year-old male with extensive medical history (endocarditis, IVDA, discitis) who presents with shortness of breath with exertion for several days, also seeking methadone dosing and his last dose was 04/12 92mg. No chest pain, fevers. Patient reports he wants to be evaluated medically but if he has to be admitted he does not want to stay in the hospital tonight but would come back at a later date if it is necessary. Will obtain labs including blood cultures, lactic acid, COVID screen, EKG, CXR. VSS 46-year-old male with history of drug abuse and bacterial endocarditis with pacemaker placement presents with increasing lower extremity edema which is new over the last 48 hours as well as increasing shortness of breath with exertion. Examination revealed a cachectic-appearing male no acute distress with good oxygen saturation. Decreased breath sounds at the left lung base crackles at the right lung base. He had 2+ bipedal edema and a systolic murmur. Patient will have chest x-ray, laboratory analysis. His EKG shows a paced rhythm. Likelihood is to recommend hospitalization. <Sushil Bryant MD - Last Filed: 04/14/22 18:29> Reevaluation(s) Reevaluation #1: Patient was a very difficult stick. Had no IV up until now. A right external jugular venous access was obtained. All bloods were obtained. Patient can go for CT angiogram to rule pulmonary embolus as a cause of his shortness of breath and bilateral lower extremity edema. Patient did miss his methadone dose today which tells me is 92 mg. Will give him a dose of 40 mg at this time. Again, patient informs me that he plans on not being admitted to the hospital even if it is recommended said that he may see his 3 children tomorrow as well as his primary care provider. Should he need to return, he does report that he will return as quickly as possible. At this time care will be assumed by Dr. Ramirez <Sushil Bryant MD - Last Filed: 04/14/22 18:29> Time: 18:27 <Sushil Bryant MD - Last Filed: 04/14/22 18:29> Medical Decision Making Medical Decision Making MDM Narrative: 46-year-old male presents with shortness of breath specifically with exertion and activity as well as by pedal edema. Is been going on for the past 48 hours. Denies any chest pain, fevers, chills, cough, mucus production. Patient denies any recent drug use but is currently on methadone it appears he may have missed 1 of his doses. Patient does not wish to be hospitalized due to some important events going on tomorrow including meeting his 3 children and seeing his primary care provider. At this time, patient will have routine laboratory analysis, chest x-ray, EKG. <Sushil Bryant MD - Last Filed: 04/14/22 18:29> Differential Diagnosis Differential Diagnoses: The differential diagnosis associated with the presentation includes ( CHF, pulmonary edema, lower extremity edema, PE, less likely acute coronary syndrome) <Sushil Bryant MD - Last Filed: 04/14/22 18:29> Admission/Observation Consideration of admission/observation: Escalation of care including admission/observation considered <Sushil Bryant MD - Last Filed: 04/14/22 18:29> Lab Data MDM Lab Attestation statement: I reviewed the patient's lab results. <Sushil Bryant MD - Last Filed: 04/14/22 18:29> Result Diagrams: 04/14/22 18:20 04/14/22 18:20 <Miranda Elise NP - Last Filed: 04/14/22 15:24> Labs: Lab Results 04/14/22 Range/Units 15:35 Influenza Type A (PCR) NEGATIVE (Negative) Influenza Type B (PCR) NEGATIVE (Negative) RSV RNA Qual (PCR) NEGATIVE (Negative) SARS-CoV-2 RNA (RT-PCR) NEGATIVE (Negative) <Miranda Elise NP - Last Filed: 04/14/22 15:24> Lab Results 04/14/22 Range/Units 15:35 Influenza Type A (PCR) NEGATIVE (Negative) Influenza Type B (PCR) NEGATIVE (Negative) RSV RNA Qual (PCR) NEGATIVE (Negative) SARS-CoV-2 RNA (RT-PCR) NEGATIVE (Negative) <Sushil Bryant MD - Last Filed: 04/14/22 18:29> Independent Interpretation I performed an independent interpretation of an: EKG ( atrial sensed ventricularly paced rhythm with 104 beats per minute. Nonspecific T-wave changes noted, evidence of LVH) <Sushil Bryant MD - Last Filed: 04/14/22 18:29> Radiology Impression Discussion of test interpretation with radiology: I have reviewed the radiologist's reading. ( XR/XR chest 2V IMPRESSION: No acute cardiopulmonary process., independently reviewed chest x-ray and agree with interpretation) <Sushil Bryant MD - Last Filed: 04/14/22 18:29> External Record Review External record reviewed: Other ( hold emergency department records) <Sushil Bryant MD - Last Filed: 04/14/22 18:29> Tests considered The following testing was considered but not selected: CT scan <Sushil Bryant MD - Last Filed: 04/14/22 18:29> Prescription Management I considered prescription management with: Pain Medication <Sushil Bryant MD - Last Filed: 04/14/22 18:29> Chronic Conditions Patient?s care impacted by: Other ( valvular heart disease) <Sushil Bryant MD - Last Filed: 04/14/22 18:29> Social Determinants Patient?s care significantly limited by Social Determinants of Health including: Inadequate housing <Sushil Bryant MD - Last Filed: 04/14/22 18:29> Core Measures Measure exclusions: not indicated <Sushil Bryant MD - Last Filed: 04/14/22 18:29> Procedures EJ/Peripheral Line Neck R: Time Out Performed: Yes <Sushil Bryant MD - Last Filed: 04/14/22 18:29> Skin Cleansed in Sterile Fashion: Yes <Sushil Bryant MD - Last Filed: 04/14/22 18:29> Size (gauge): 18 <Sushil Bryant MD - Last Filed: 04/14/22 18:29> IV Secured and Dressing Applied: Yes <Sushil Bryant MD - Last Filed: 04/14/22 18:29> Patient Tolerated Procedure: well <Sushil Bryant MD - Last Filed: 04/14/22 18:29> Discharge Plan Discharge Clinical Impression: Acute dyspnea, Bilateral lower extremity edema <Miranda Elise NP - Last Filed: 04/14/22 15:24> Instructions: Dyspnea (ED), Edema (ED) <Miranda Elise NP - Last Filed: 04/14/22 15:24> Additional Instructions: return immediately to the emergency department she developed progressive shortness of breath, chest pain, increasing lower extremity edema, high fevers or any other concerning symptoms. <Miranda Elise NP - Last Filed: 04/14/22 15:24>
--- NOTE | 2022-04-14 15:21 | ECG_ITS ---
Test Reason : sob Blood Pressure : / mmHG Vent. Rate : 104 BPM Atrial Rate : 104 BPM P-R Int : 130 ms QRS Dur : 140 ms QT Int : 402 ms P-R-T Axes : 079 -54 095 degrees QTc Int : 528 ms Atrial-sensed ventricular-paced rhythm Abnormal ECG When compared with ECG of 20-JAN-2022 12:23, Vent. rate has increased BY 29 BPM Referred By: Miranda Elise Electronically Signed By:Nehemias Maya
[2022-04-14 16:38] VITALS: BP 101/75; PULSE 101; RESP 16; TEMP 36.6; O2SAT 95
[2022-04-14 16:53] LABS: Influenza A PCR NEGATIVE (Negative); Influenza B PCR NEGATIVE (Negative); Resp Syncy Virus RNA Qual PCR NEGATIVE (Negative); SARS COV2 PCR INHOUSE NEGATIVE (Negative)
--- NOTE | 2022-04-14 17:15 | MHC.EDTECH ---
patient was hooked up to library monitor ,vitals sign taken patient a difficult draw ,phlebotomy called ,suhail george aware .
[2022-04-14 18:00] VITALS: BP 105/73; PULSE 102; RESP 16; TEMP 36.6; O2SAT 97
[2022-04-14 18:25] LABS: MANUAL DIFF FLAG NO
[2022-04-14 18:27] LABS: Basophils Percent Auto 0.1 % (0-2); Hemoglobin 9.4 g/dl (14.0-18.0); Mean Corpuscular Volume 89.1 fL (80.0-98.0); Monocytes Absolute Auto 0.4 X10*3/uL (0.1-1.2); Monocytes Percent Auto 4.1 % (2-11); SCAN SMEAR FLAG 1
[2022-04-14 18:29] LABS: Eosinophils Percent Auto 0.1 % (0-4); Hematocrit 29.3 % (42.0-52.0); Imm Gran Abs Auto 0.07 X10*3/uL (0.00-0.03); Imm Gran Pct Auto 0.7 % (0.0-0.4); Lymphocytes Absolute Auto 1.2 X10*3/uL (1.2-4.9); Lymphocytes Percent Auto 11.4 % (20-40); Mean Corpuscular HGB Conc 32.1 g/dl (31.0-36.0); Mean Corpuscular Hemoglobin 28.6 pg (27.0-33.0); Neutrophils Absolute Auto 8.6 x10*3/uL (2.0-8.3); Neutrophils Percent Auto 83.6 % (45-73); Red Blood Count 3.29 X10*6/uL (4.60-5.80); Red Cell Distribution Width 23.4 % (11.0-16.0)
[2022-04-14 18:30] LABS: PLT ABN DIST 1
[2022-04-14 18:33] LABS: Prothrombin Time 23.6 SEC (10.0-13.1)
[2022-04-14 18:45] LABS: White Blood Count 10.3 X10*3/uL (4.8-10.8)
[2022-04-14 18:46] LABS: Alanine Aminotransferase 37 U/L (0-40); Albumin Level 2.3 g/dL (3.5-5.0); Alkaline Phosphatase 184 U/L (39-117); Anion Gap 14 (12-20); Aspartate Amino Transferase 100 U/L (5-37); Bilirubin Direct 2.2 mg/dL (0.0-0.5); Bilirubin Total 3.3 mg/dL (0.0-1.0); Blood Urea Nitrogen 41 mg/dL (9-16); Calcium 7.8 mg/dL (8.4-10.2); Carbon Dioxide 19 mmol/L (22-29); Chloride 106 mmol/L (96-108); Creatinine Clr Calc Pharmacy 93.7; Estimated Glomerular Filt Rate > 60; Glucose Random 69 mg/dL (60-115); Magnesium 1.8 mg/dL (1.6-2.6); Platelet Count 93 X10*3/uL (160-400); Potassium 4.8 mmol/L (3.3-5.1); Sodium 134 mmol/L (135-145); Total Protein 5.9 g/dL (6.5-8.0)
[2022-04-14 18:48] LABS: Lactic Acid 4.2 mmol/L (0.5-2.0)
[2022-04-14 18:52] LABS: B Type Natriuretic Peptide 4419 pg/mL (<100)
[2022-04-14 18:57] LABS: Troponin-I High Sensitivity 1483.9 ng/L (<3.5-35.0)
[2022-04-14] MEDS: 0.9 % Sodium Chloride 500 ML IV (19:10)
--- NOTE | 2022-04-14 19:20 | HE.PHANOTE ---
re: methadone patients normal dose 2 days ago was 92 mg, unable to contact clinic at this time, has authorized dose of 40 mg
[2022-04-14] MEDS: methADONE HCl 20 MG/2 ML ORAL.CONC 40 MG PO (19:24)
[2022-04-14] MEDS: Ketorolac Tromethamine 15 MG/ML VIAL IVPUSH (19:25)
[2022-04-14] MEDS: cefTRIAXone sodium 2 GM in 0.9 % Sodium Chloride 50 ML IV (19:25)
[2022-04-14 19:33] VITALS: BP 98/71; PULSE 102; RESP 20; O2SAT 96
[2022-04-14] MEDS: iohexoL 350 MG/ML 100 ML INFUS..BTL IV (19:50)
--- NOTE | 2022-04-14 20:01 | PC.NURSE ---
This scientific writer assumed care of this PT at 1900. PT A&Ox4, reports 8/10 all over body pain. Meds given as documented. PT states this is ridiculous, I'm only getting half my methadone dose, after the CT scan I am leaving AMA . PT back from CT scan and started to get dress. Provider notified and spoke with PT about risks of leaving. PT made a few phone calls. EJ line removed. AMA form signed. PT brought out to via W/C.
[2022-04-14 20:24] LABS: Reflex Lactate? Lactic Acid Added
== END 2022-04-14 20:28 | disposition left against medical advice (07) ==
PROVIDERS: Internal Medicine; Nurse Practitioner Family; Emergency Provider Emergency Medicine
DX: R06.02 Shortness of breath (principal); I38 Endocarditis, valve unspecified; R60.0 Localized edema; Z20.822 Contact with and (suspected) exposure to COVID-19; Z20.828 Contact with and (suspected) exposure to other viral communicable diseases; Z79.899 Other long term (current) drug therapy; Z91.14 Patient's other noncompliance with medication regimen
CPT/HCPCS: 0241U; 36415; 36556; 71046; 71275; 80048; 80076; 82550; 83605; 83735; 83880; 84484; 85025; 85610; 87040; 87077; 87186; 87205; 93005; 96361; 96374; 96375; 99284; 99285; J0696; J1885; Q9967